=== PATIENT | male | born 1955 | race Caucasian/White ===

== ENCOUNTER → 2016-12-31 | Outpatient (CLI) | payer BC ==
[2016-12-31 10:43] LABS: HEMATOCRIT 49.6 % (42-52); MEAN CELL VOLUME 91.9 fL (80-100); MEAN CORPUSCULAR HEMOGLOBIN 30.6 pg (25-34); MEAN CORPUSCULAR HGB CONC 33.3 g/dl (32-36); MEAN PLATELET VOLUME 9.3 fL (7.4-10.4); PLATELET COUNT 252 K/uL (130-400); WHITE BLOOD COUNT 4.94 K/uL (4.8-10.8)
[2016-12-31 15:15] LABS: ALT/SGPT 34 U/L (12-78); AST/SGOT 21 U/L (15-37); BLOOD UREA NITROGEN 18 mg/dl (7-18); BUN/CREATININE RATIO 18.3 (10-20); CALCIUM 8.9 mg/dl (8.5-10.1); CARBON DIOXIDE 29 mmol/L (21-32); CHLORIDE 108 mmol/L (98-107); CREATININE 0.96 mg/dl (0.60-1.40); GLUCOSE 96 mg/dl (70-99); POTASSIUM 4.5 mmol/L (3.5-5.1); SODIUM 141 mmol/L (136-145)
[2016-12-31 15:22] LABS: CHOLESTEROL 162 mg/dl (0-200); CHOLESTEROL/HDL RATIO 2.5; HDL CHOLESTEROL 66 mg/dl; LDL CHOLESTEROL CALCULATED 82 mg/dl; TRIGLYCERIDES 70 mg/dl (0-150); VERY LOW DENSITY LIPOPROT CALC 14 mg/dl
== END | disposition home or self-care (01) ==
LOC: C.LABBC 09:10
PROVIDERS: ATTEND Urology
DX: Z00.00 Encounter for general adult medical examination without abnormal findings (principal); Z11.59 Encounter for screening for other viral diseases; R97.20 Elevated prostate specific antigen [PSA]; E78.00 Pure hypercholesterolemia, unspecified; I51.9 Heart disease, unspecified; R00.2 Palpitations

== ENCOUNTER → 2017-07-22 | Outpatient (CLI) | payer BC | END | disposition home or self-care (01) | LOC: C.LABBC 11:30 | PROVIDERS: ATTEND Urology | DX: R97.20 Elevated prostate specific antigen [PSA] (principal) ==

== ENCOUNTER → 2018-01-10 | Outpatient (CLI) | payer BC ==
[2018-01-10 14:18] LABS: ALT/SGPT 33 U/L (12-78); AST/SGOT 19 U/L (15-37); BLOOD UREA NITROGEN 22 mg/dl (7-18); CALCIUM 9.1 mg/dl (8.5-10.1); CARBON DIOXIDE 29 mmol/L (21-32); CHOLESTEROL 160 mg/dl (0-200); CREATININE 1.03 mg/dl (0.60-1.40); GLUCOSE 108 mg/dl (70-99); LDL CHOLESTEROL CALCULATED 99 mg/dl; POTASSIUM 4.9 mmol/L (3.5-5.1); SODIUM 139 mmol/L (136-145)
== END | disposition home or self-care (01) ==
LOC: C.LABBC 10:15
PROVIDERS: ATTEND Internal Medicine
DX: E78.00 Pure hypercholesterolemia, unspecified (principal); I51.9 Heart disease, unspecified

== ENCOUNTER 2020-04-23 11:06 | Inpatient (IN) ==
[2020-04-23] MEDS ORDERED: KETOROLAC TROMETHAMINE 15 MG/ML VIAL IV ONE (11:27)
[2020-04-23] MEDS ORDERED: SODIUM CHLORIDE 0.9% 1000ML 1,000 ML IV SCH ×2 (11:30→16:19)
[2020-04-23 11:41] LABS: Appearance Urine Cloudy (Clear); Bilirubin Urine Negative (Negative); Blood Urine 3+ (Negative); Color Urine Orange; Glucose Urine UA Negative (Negative); Ketones Urine Negative (Negative); Leukocyte Esterase Urine 3+ (Negative); Nitrite Urine Negative (Negative); Protein Urine 1+ (Negative); Urobilinogen Urine Negative (Negative); pH Urine 5.5 (4.5-7.5)
--- NOTE | 2020-04-23 11:43 | Emergency Department Note ---
Impression & Plan Prostatitis, Fever, Post-operative infection ED Provider Note NAME: STEVEN COTTON AGE: 64 SEX: M : 1955 ARRIVES VIA: Walk-In INFORMANT: Patient, ED PROVIDER(S): Brendon Rhodes DO CHIEF COMPLAINT: Fever HPI: The patient is 2 days status post transrectal prostate biopsy for possible prostate cancer who presented to the emergency department for an evaluation of fever. The patient had a fever of 103. He took Tylenol this morning. He states that he has some back pain as well as some dysuria. He is also noticed some hematuria with clots. He denies having any chest pain or cough. He has no difficulty breathing. He denies having any lower extremity swelling. He did call his primary urologist who did the procedure and he was advised to come to the emergency department for further evaluation. The patient states his pain is moderate. It is worse with movement. He denies having any rashes. ROS: See above HPI for pertinent positives & negatives. A total of 10 systems reviewed and were otherwise negative. PAST MEDICAL HISTORY: See Below PAST SURGICAL HISTORY: See Below FAMILY HISTORY: See Below SOCIAL HISTORY: See Below HOME MEDICATIONS: See Below ALLERGIES: See Below VITALS: See Below PHYSICAL EXAMINATION: GENERAL: Patient is awake alert in no acute distress patient is resting comfortably and showing no signs of anxiety EYES: The conjunctivae are clear. The pupils are round and reactive. EARS, NOSE, MOUTH AND THROAT: The nose is without any evidence of any deformity. Mucous membranes are moist. Tongue is midline. NECK: The neck is nontender and supple. RESPIRATORY: Normal respiratory effort is noted there is no evidence of wheezing rhonchi or rales CARDIOVASCULAR: Regular rate and rhythm noted there no murmurs rubs or gallops normal S1 normal S2. GASTROINTESTINAL: The abdomen is soft. There is mild suprapubic tenderness to palpation. BACK: No midline tenderness or or step-off noted range of motion in flexion extension as well as rotation no signs of muscle spasm noted MUSCULOSKELETAL/EXTREMITIES: There is no evidence of gross deformity full range of motion is noted in the hips and shoulders. SKIN: There is no obvious evidence of any rash. There are no petechiae, pallor or cyanosis noted. NEUROLOGIC: Patient is awake alert and oriented x3 strength is symmetric patellar reflexes are 2+ bilaterally MEDICAL DECISION MAKING: The patient is a 64-year-old male who presented to the emergency department for an evaluation of fever. The patient is 2 days status post transrectal biopsy of a prostate abnormality noted on MRI. This was done under sedation at [facility] in [place]. The patient developed fever and chills today. He presents to the emergency department for further evaluation. He was treated with IV fluids and IV antibiotics. He was reevaluated multiple times. I discussed the patient's laboratory and radiographic studies with him. I also discussed his case with his primary urology group at [facility]. Triage Nursing notes reviewed. Prior medical records reviewed Vital Signs: reviewed and remarkable for tachycardia. Differential diagnosis: Viral syndrome, otitis, pharyngitis, pneumonia, influenza, meningitis, urinary tract infection, sepsis, bacteremia, postop fever, as well as other pathologies. ER treatment provided: See below Diagnostics interpreted by me: ECG: none Cardiac Monitoring: An order was placed for continuous cardiac monitoring. The monitor shows a rate of 88 beats per minute with sinus rhythm. Laboratory studies: As stated above and show below. Imaging studies: See below Consultation(s): 1420: I discussed this case with the patient's primary urologist, . He does recommend further inpatient management with IV fluids and broad-spectrum antibiotics. Past Med/Surg History Medical History BPH (benign prostatic hyperplasia) Family history of thoracic aortic aneurysm Hyperlipidemia Monoallelic mutation of [id number] gene Paroxysmal atrial tachycardia Pyloric stenosis Renal artery aneurysm Surgical History H/O knee surgery (~1999) Right Knee done at [facility] History of pyloroplasty Hx of hernia repair (~1997) Umbilical hernia repair at [facility] Family History Mother Myocardial infarction Brother Atrial fibrillation Coronary heart disease Supraventricular tachycardia Father Prostate cancer Sister Stroke Denies family history of Ovarian cancer Breast cancer Colorectal cancer Social History Smoking Status: Never smoker Hx Alcohol Use: Yes Alcohol type: wine Preferred Language: Welsh Communication Ability: Effective Visual Impairment: No Limitations Hearing Ability: Normal Public Address System Operator Required: No Beliefs That Will Affect Care: None marital status: Current Living Situation: Spouse current occupational status: retired Feels Safe at Home: Yes Seatbelt Use: always Allergies Allergies Allergy/AdvReac Type Severity Reaction Status Date / Time No Known Allergies Allergy Verified 04/23/20 12:06 Home Meds Home Medications Medication Instructions Recorded Confirmed acetaminophen [Tylenol Extra 1,000 mg PO Q6H PRN 04/23/20 04/23/20 Strength] atorvastatin 10 mg PO QAM 04/23/20 04/23/20 cholecalciferol (vitamin D3) 50 mcg PO QAM 04/23/20 04/23/20 Results & Data (ED) Vital Signs Vital Signs - 24 hr 04/23/20 11:07 04/23/20 11:29 04/23/20 11:31 Temperature 36.4 C L Temperature Source Oral Pulse Rate 115 H 86 91 H Pulse Rate from SpO2 Sensor 86 90 Respiratory Rate 20 20 17 Blood Pressure 173/80 H 142/91 H 102/86 Blood Pressure Mean 111 102 90 Pulse Oximetry 95 97 97 Oxygen Delivery Method Room Air Room Air Room Air Sepsis Recent Fever Within 48 Hours Yes Sepsis New/Unexplained Change in Mental Status No Sepsis Action Taken by Nursing No Action Required 04/23/20 11:32 04/23/20 11:40 04/23/20 11:50 Temperature Temperature Source Pulse Rate 84 89 94 H Pulse Rate from SpO2 Sensor 85 90 93 H Respiratory Rate 22 24 18 Blood Pressure Blood Pressure Mean Pulse Oximetry 96 98 98 Oxygen Delivery Method Room Air Room Air Room Air Sepsis Recent Fever Within 48 Hours Sepsis New/Unexplained Change in Mental Status Sepsis Action Taken by Nursing 04/23/20 12:00 04/23/20 12:01 04/23/20 12:10 Temperature Temperature Source Pulse Rate 90 91 H 94 H Pulse Rate from SpO2 Sensor 91 H 91 H 94 H Respiratory Rate 25 H 27 H 26 H Blood Pressure 125/73 Blood Pressure Mean 84 Pulse Oximetry 97 97 96 Oxygen Delivery Method Room Air Room Air Room Air Sepsis Recent Fever Within 48 Hours Sepsis New/Unexplained Change in Mental Status Sepsis Action Taken by Nursing 04/23/20 12:20 04/23/20 12:30 Temperature Temperature Source Pulse Rate 98 H 93 H Pulse Rate from SpO2 Sensor 97 H 94 H Respiratory Rate 27 H 22 Blood Pressure 114/74 Blood Pressure Mean 86 Pulse Oximetry 96 97 Oxygen Delivery Method Room Air Room Air Sepsis Recent Fever Within 48 Hours Sepsis New/Unexplained Change in Mental Status Sepsis Action Taken by Intermediate Medications Current Medication List: was personally reviewed by me Laboratory Data Attestation: I reviewed the patient's lab results. Result diagrams: 04/23/20 11:52 04/23/20 11:52 Lab Results 04/23/20 04/23/20 04/23/20 Range/Units 11:25 11:52 11:52 WBC 14.87 H (4.8-10.8) K/uL RBC 5.24 (4.7-6.1) M/uL Hgb 16.8 (14.0-18.0) g/dL Hct 47.9 (42-52) % MCV 91.4 (80-100) fL MCH 32.1 (25-34) pg MCHC 35.1 (32-36) g/dL RDW Std Deviation 42.2 (36.4-46.3) fL RDW Coeff of Jes 12.6 (11.5-14.5) % Plt Count 207 (130-400) K/uL MPV 8.7 (7.4-10.4) fL Immature Gran % (Auto) 0.3 % Neut % (Auto) 93.3 % Lymph % (Auto) 5.3 % Green % (Auto) 0.9 % Eos % (Auto) 0.1 % Baso % (Auto) 0.1 % Neut # (Auto) 13.87 H (1.4-6.5) K/uL Lymph # (Auto) 0.79 L (1.2-3.4) K/uL Green # (Auto) 0.14 (0.11-0.59) K/uL Eos # (Auto) 0.01 (0-0.5) K/uL Baso # (Auto) 0.01 (0-0.2) K/uL Immature Gran # (Auto) 0.05 H (0.00-0.02) K/uL ESR 10 (0-14) mm/hr PT (9.0-12.0) Seconds INR (0.9-1.1) APTT (21.0-31.0) Seconds PTT Ratio Sodium (136-145) mmol/L Potassium (3.5-5.1) mmol/L Chloride (98-107) mmol/L Carbon Dioxide (21-32) mmol/L Anion Gap (3-11) BUN (7-18) mg/dl Creatinine (0.6-1.4) mg/dl Est Cr Clr Drug Dosing ml/min Est GFR ( Amer) Est GFR (Non-Af Amer) BUN/Creatinine Ratio (10-20) Glucose (70-99) mg/dl Calcium (8.5-10.1) mg/dl Total Bilirubin (0.2-1) mg/dl AST (15-37) U/L ALT (12-78) U/L Alkaline Phosphatase (45-117) U/L C-Reactive Protein (0-0.29) mg/dl Total Protein (6.4-8.2) gm/dl Albumin (3.4-5.0) gm/dl Globulin (2.5-4.0) gm/dl Albumin/Globulin Ratio (0.9-2) Procalcitonin (0-0.5) ng/ml Urine Color [place] Urine Appearance Cloudy A (Clear) Urine pH 5.5 (4.5-7.5) Ur Specific Cassandra 1.010 (1.000-1.030) Urine Protein 1+ H (Negative) Urine Glucose (UA) Negative (Negative) Urine Ketones Negative (Negative) Urine Blood 3+ H (Negative) Urine Nitrite Negative (Negative) Urine Bilirubin Negative (Negative) Urine Urobilinogen Negative (Negative) Ur Leukocyte Esterase 3+ H (Negative) Urine WBC (Auto) >30 H (0-5) /hpf Urine RBC (Auto) >30 H (0-4) /hpf U Hyaline Cast (Auto) 1-5 (0-5) /lpf U Epithel Cells (Auto) 0-5 (0-5) /lpf Urine Bacteria (Auto) 2+ H (Negative) 04/23/20 04/23/20 04/23/20 Range/Units 11:52 11:52 11:52 WBC (4.8-10.8) K/uL RBC (4.7-6.1) M/uL Hgb (14.0-18.0) g/dL Hct (42-52) % MCV (80-100) fL MCH (25-34) pg MCHC (32-36) g/dL RDW Std Deviation (36.4-46.3) fL RDW Coeff of Jes (11.5-14.5) % Plt Count (130-400) K/uL MPV (7.4-10.4) fL Immature Gran % (Auto) % Neut % (Auto) % Lymph % (Auto) % Green % (Auto) % Eos % (Auto) % Baso % (Auto) % Neut # (Auto) (1.4-6.5) K/uL Lymph # (Auto) (1.2-3.4) K/uL Green # (Auto) (0.11-0.59) K/uL Eos # (Auto) (0-0.5) K/uL Baso # (Auto) (0-0.2) K/uL Immature Gran # (Auto) (0.00-0.02) K/uL ESR (0-14) mm/hr PT 10.9 (9.0-12.0) Seconds INR 1.0 (0.9-1.1) APTT 31.9 H (21.0-31.0) Seconds PTT Ratio 1.1 Sodium 135 L (136-145) mmol/L Potassium 4.2 (3.5-5.1) mmol/L Chloride 102 (98-107) mmol/L Carbon Dioxide 28 (21-32) mmol/L Anion Gap 5.0 (3-11) BUN 14 (7-18) mg/dl Creatinine 1.27 (0.6-1.4) mg/dl Est Cr Clr Drug Dosing 75.9 ml/min Est GFR ( Amer) 67.8 Est GFR (Non-Af Amer) 58.5 BUN/Creatinine Ratio 11.2 (10-20) Glucose 126 H (70-99) mg/dl Calcium 9.1 (8.5-10.1) mg/dl Total Bilirubin 0.9 (0.2-1) mg/dl AST 20 (15-37) U/L ALT 30 (12-78) U/L Alkaline Phosphatase 70 (45-117) U/L C-Reactive Protein 4.36 H (0-0.29) mg/dl Total Protein 8.0 (6.4-8.2) gm/dl Albumin 3.7 (3.4-5.0) gm/dl Globulin 4.3 H (2.5-4.0) gm/dl Albumin/Globulin Ratio 0.9 (0.9-2) Procalcitonin 0.73 H (0-0.5) ng/ml Urine Color Urine Appearance (Clear) Urine pH (4.5-7.5) Ur Specific Cassandra (1.000-1.030) Urine Protein (Negative) Urine Glucose (UA) (Negative) Urine Ketones (Negative) Urine Blood (Negative) Urine Nitrite (Negative) Urine Bilirubin (Negative) Urine Urobilinogen (Negative) Ur Leukocyte Esterase (Negative) Urine WBC (Auto) (0-5) /hpf Urine RBC (Auto) (0-4) /hpf U Hyaline Cast (Auto) (0-5) /lpf U Epithel Cells (Auto) (0-5) /lpf Urine Bacteria (Auto) (Negative) Administered Medications Discontinued Medications Sodium Chloride (Nss 1000ml) 1,000 mls @ 999 mls/hr IV .[id number] SCOTT Stop: 04/23/20 12:30 Last Infusion: 04/23/20 13:06 Dose: 0 mls/hr Documented by: [id number] Admin: 04/23/20 12:00 Dose: 999 mls/hr Documented by: [id number] Piperacillin Sod/Tazobactam Sod (Zosyn) 4.5 gm in 120 mls @ 240 mls/hr IV NOW ONE Stop: 04/23/20 13:05 Last Infusion: 04/23/20 13:59 Dose: 0 mls/hr Documented by: [id number] Admin: 04/23/20 13:25 Dose: 240 mls/hr Documented by: [id number] Ioversol (Ioversol 100ml) 93 ml IV ONCE ONE Stop: 04/23/20 12:57 Last Admin: 04/23/20 12:56 Dose: 93 ml Documented by: [id number] Ketorolac Tromethamine (Ketorolac Tromethamine 15 Mg/Ml Vial) 10 mg IV NOW ONE Stop: 04/23/20 11:28 Last Admin: 04/23/20 12:00 Dose: 10 mg Documented by: [id number] Imaging Data Radiologist's Impression: CT SCAN OF THE ABDOMEN AND PELVIS WITH IV CONTRAST CLINICAL HISTORY: Fever status post prostate biopsy. COMPARISON STUDY: Abdominal CT dated 04/08/2020. TECHNIQUE: Following the IV administration of 94 cc of Optiray 320, CT scan of the abdomen and pelvis is performed from the lung bases to the proximal femora. Images are reviewed in the axial, sagittal, and coronal planes. IV contrast was administered without complication. A dose lowering technique was utilized adhering to the principles of ALARA. CT DOSE: 1090.29 mGy.cm FINDINGS: Lung bases: The heart is normal in size and without pericardial effusion. The lung bases are clear noting bibasilar scarring/atelectasis. There is a small hiatal hernia. Liver: The contrast-enhanced liver is normal in size, contour, and attenuation. There is no intrahepatic biliary ductal dilatation. The hepatic veins and portal veins are patent. Gallbladder: Unremarkable. Spleen: Normal in size and attenuation. A 1.5 cm hypodensity in the inferior spleen on image #128 is unchanged and statistically of doubtful significance. Pancreas: Unremarkable. Adrenal glands: Unremarkable. Kidneys: The contrast enhanced kidneys are normal in size and without hydronephrosis. The kidneys enhance symmetrically. Numerous bilateral renal cysts measure up to 5.3 cm. Additional subcentimeter cortical hypodensities also likely represent cysts but are too small for definitive characterization. Abdominal vasculature: The abdominal aorta is normal in course and caliber noting mild atherosclerotic calcification. Bowel: There is no bowel obstruction. There are scattered colonic diverticula without CT evidence of acute diverticulitis. Mild fecal retention is seen throughout the colon. The appendix is well-visualized and normal. Peritoneum: There is no intraperitoneal free air or abdominal ascites. There is a fat-containing umbilical hernia. There is evidence of ventral hernia repair in the pelvis. Lymphadenopathy: None. Pelvic viscera: The prostate gland is enlarged and heterogeneous measuring 6.6 cm in transverse diameter. The bladder wall is mildly thickened and trabeculated suggesting chronic outlet obstruction. Skeletal structures: No lytic or blastic lesions are seen. IMPRESSION: 1. The prostate gland is enlarged and heterogeneous. Correlate clinically and with urinalysis for evidence of prostatitis. 2. Additional findings as above. ACT 112: Negative or not required by law. Electronically signed by: Deion Guillen M.D. 04/23/2020 1:14 PM Dictated: 04/23/20 1307 Transcribed: 04/23/20 1307 Blood Pressure Blood Pressure Findings: Normal blood pressure Discharge Plan Visit Data Chief Complaint: Fever Stated Complaint: POST PROCEDURE [facility] - FEVER ED Provider: Brendon Rhodes Discharge Problem: Prostatitis, Fever, Post-operative infection Forms Stand Alone Forms: My [facility] [employer] Prescriptions Prescriptions: No Action acetaminophen [Tylenol Extra Strength] 500 mg Tablet 1,000 mg PO Q6H PRN (Reason: Pain) RF: 0 atorvastatin 10 mg tablet 10 mg PO QAM RF: 0 cholecalciferol (vitamin D3) 50 mcg (2,000 unit) capsule 50 mcg PO QAM RF: 0 Referrals Referrals: Brendon Carrasco MD [Primary Care Provider] - Discharge Problem: Prostatitis Qualifiers: Prostatitis type: unspecified Qualified Code(s): N41.9 - Inflammatory disease of prostate, unspecified Fever Qualifiers: Fever type: unspecified Qualified Code(s): R50.9 - Fever, unspecified Post-operative infection Qualifiers: Encounter type: initial encounter Postoperative infection type: unspecified type Qualified Code(s): T81.40XA - Infection following a procedure, unspecified, initial encounter
[2020-04-23 11:54] LABS: Epithelial Cell Urine Auto 0-5 /lpf (0-5); RBC Urine Automated >30 /hpf (0-4); WBC Urine Automated >30 /hpf (0-5)
[2020-04-23 11:55] LABS: Bacteria Urine Automated 2+ (Negative)
[2020-04-23 12:04] LABS: Basophils # (auto) 0.01 K/uL (0-0.2); Basophils % (auto) 0.1 %; Eosinophils # (auto) 0.01 K/uL (0-0.5); Eosinophils % (auto) 0.1 %; Hematocrit (blood only) 47.9 % (42-52); Hemoglobin 16.8 g/dL (14.0-18.0); Immature Granulocytes # (auto) 0.05 K/uL (0.00-0.02); Immature Granulocytes % (auto) 0.3 %; Lymphocytes # (auto) 0.79 K/uL (1.2-3.4); Lymphocytes % (auto) 5.3 %; Mean Corpuscular Hemoglobin 32.1 pg (25-34); Mean Corpuscular Hgb Conc 35.1 g/dL (32-36); Mean Corpuscular Volume 91.4 fL (80-100); Mean Platelet Volume 8.7 fL (7.4-10.4); Monocytes # (auto) 0.14 K/uL (0.11-0.59); Monocytes % (auto) 0.9 %; Neutrophils # (auto) 13.87 K/uL (1.4-6.5); Neutrophils % (auto) 93.3 %; Platelet Count 207 K/uL (130-400); RDW Coefficient of Variation 12.6 % (11.5-14.5); RDW Standard Deviation 42.2 fL (36.4-46.3); Red Blood Count 5.24 M/uL (4.7-6.1); White Blood Count 14.87 K/uL (4.8-10.8)
[2020-04-23 12:15] LABS: Partial Thromboplastin Ratio 1.1; Partial Thromboplastin Time 31.9 Seconds (21.0-31.0); Prothrombin Time 10.9 Seconds (9.0-12.0)
[2020-04-23 12:22] LABS: Albumin Level 3.7 gm/dl (3.4-5.0); BUN Creatinine Ratio 11.2 (10-20); Calcium 9.1 mg/dl (8.5-10.1); Creatinine Clr Calc Pharmacy 75.9 ml/min; Est GFR (African American) 67.8; Est GFR (Non-African American) 58.5; Potassium 4.2 mmol/L (3.5-5.1)
[2020-04-23 12:25] LABS: Albumin Globulin Ratio 0.9 (0.9-2); Bilirubin,Total 0.9 mg/dl (0.2-1); C Reactive Protein 4.36 mg/dl (0-0.29); Globulin 4.3 gm/dl (2.5-4.0)
[2020-04-23] MEDS ORDERED: PIPERACILLIN/TAZOBACTAM 4.5 GM/120 ML BAG IV ONE (12:36)
[2020-04-23] MEDS ORDERED: PIPERACILL/TAZOBAC CONSULT ACTIVE PRN (12:36)
[2020-04-23] MEDS ORDERED: IOVERSOL 100ml IV ONE (12:56)
--- NOTE | 2020-04-23 13:16 | CT Scan Report ---
CT SCAN OF THE ABDOMEN AND PELVIS WITH IV CONTRAST CLINICAL HISTORY: Fever status post prostate biopsy. COMPARISON STUDY: Abdominal CT dated 04/08/2020. TECHNIQUE: Following the IV administration of 94 cc of Optiray 320, CT scan of the abdomen and pelvi s is performed from the lung bases to the proximal femora. Images are reviewed in the axial, sagittal , and coronal planes. IV contrast was administered without complication. A dose lowering technique wa s utilized adhering to the principles of ALARA. CT DOSE: 1090.29 mGy.cm FINDINGS: Lung bases: The heart is normal in size and without pericardial effusion. The lung bases are clear no ting bibasilar scarring/atelectasis. There is a small hiatal hernia. Liver: The contrast-enhanced liver is normal in size, contour, and attenuation. There is no intrahepa tic biliary ductal dilatation. The hepatic veins and portal veins are patent. Gallbladder: Unremarkable. Spleen: Normal in size and attenuation. A 1.5 cm hypodensity in the inferior spleen on image #128 is unchanged and statistically of doubtful significance. Pancreas: Unremarkable. Adrenal glands: Unremarkable. Kidneys: The contrast enhanced kidneys are normal in size and without hydronephrosis. The kidneys enh ance symmetrically. Numerous bilateral renal cysts measure up to 5.3 cm. Additional subcentimeter cor tical hypodensities also likely represent cysts but are too small for definitive characterization. Abdominal vasculature: The abdominal aorta is normal in course and caliber noting mild atheroscleroti c calcification. Bowel: There is no bowel obstruction. There are scattered colonic diverticula without CT evidence of acute diverticulitis. Mild fecal retention is seen throughout the colon. The appendix is well-visual ized and normal. Peritoneum: There is no intraperitoneal free air or abdominal ascites. There is a fat-containing umbi lical hernia. There is evidence of ventral hernia repair in the pelvis. Lymphadenopathy: None. Pelvic viscera: The prostate gland is enlarged and heterogeneous measuring 6.[address] The bladder wall is mildly thickened and trabeculated suggesting chronic outlet obstruction. Skeletal structures: No lytic or blastic lesions are seen. IMPRESSION: 1. The prostate gland is enlarged and heterogeneous. Correlate clinically and with urinalysis for yaniv dence of prostatitis. 2. Additional findings as above. ACT 112: Negative or not required by law. Electronically signed by: Deion Guillen M.D. 04/23/2020 1:14 PM
[2020-04-23] MEDS ORDERED: ACETAMINOPHEN 500 MG TAB PO STA (14:21)
--- NOTE | 2020-04-23 15:25 | History & Physical Report ---
Date of Service April 23, 2020 Assessment & Plan (1) Prostatitis: Postsurgical infection. Patient had a transrectal prostate biopsy on Tuesday Procalcitonin 0.73 WBC 14.7 Received Zosyn in the emergency department. Continue Zosyn IV We will also add gentamicin 7 mg/kg for 24 to 48 hours until cultures come back At this point I did discuss the case with urology. No indication for consult at this time If patient does need a catheter would use a coud catheter as the patient has had multiple prostate biopsies and may have stricture For now strict ins and outs Follow daily labs (2) STEPHANIE (acute kidney injury): GFR is reduced at 58 Patient's creatinine is slightly bumped at 1.27 Will treat with normal saline solution at 125 mL/h Strict I's and O's Follow serial labs (3) BPH (benign prostatic hyperplasia): Follows with urology in [place] Is not on any alpha blockers Continue to follow strict I's and O's Further outpatient management with his urologist (4) Hyperlipidemia: Continue atorvastatin 10 mg daily (5) Paroxysmal atrial tachycardia: Follows with Dr. Dunbar [facility] cardiology Not on any beta-pierre or anticoagulant Normal sinus rhythm on telemetry here in the ED Schedule for follow-up appointment with cardiology in 1 year (6) Family history of thoracic aortic aneurysm: CT a of the chest in March 2020 with no abnormal findings Annual follow-up (7) DVT prophylaxis: CHRIS kaia SCDs No chemical prophylaxis secondary to gross hematuria and recent surgery Ambulate in the hallways as tolerated Please refer to Dr. Mar's addendum for further recommendations History of Present Illness Primary Care Provider: Brendon Carrasco MD Attending: Dr. Mar This is a 64-year-old male with a history of BPH with multiple negative biopsies of the prostate, hyperlipidemia, obesity. The patient presents for evaluation treatment secondary to hematuria, fever, and Rigors. He underwent a transrectal biopsy of the prostate on Tuesday at [facility] in [place] and then stayed with his family the next day. He then returned home and did well until last night at approximate midnight when he began to have rigors and felt febrile. He had a very small amount of blood rectally on Tuesday and that has since resolved completely. He also had a resolution of hematuria until last night when he began having gross hematuria again. He has some minimal flank pain and low back pain and presented to the emergency room this morning for further evaluation and treatment. The patient was found to have an elevated white count of 14.87. T-max was 37.7. His urologic surgeon in [place] Dr. Hinkle was contacted and recommended inpatient IV therapy for postoperative infection. The patient is seen in his bed in room C3 with his Kimmie present. He continues to have chills and rigors. Has no nausea or vomiting. He does feel febrile. A CT scan of the abdomen pelvis was completed and shows enlarged prostate which is heterogeneous. There is also evidence for prostatitis. Treatment options were discussed with the patient and he will be admitted for inpatient therapy with IV Zosyn. I did discuss CODE STATUS with the patient and he desires to be a level 1 for resuscitation. His is present and agrees. Allergies Allergy/AdvReac Type Severity Reaction Status Date / Time No Known Allergies Allergy Verified 04/23/20 12:06 Home Medications Home Medications Medication Instructions Recorded Confirmed Type acetaminophen [Tylenol Extra 1,000 mg PO Q6H PRN 04/23/20 04/23/20 History Strength] atorvastatin 10 mg PO QAM 04/23/20 04/23/20 History cholecalciferol (vitamin D3) 50 mcg PO QAM 04/23/20 04/23/20 History Past Med/Surg History Medical History BPH (benign prostatic hyperplasia) Family history of thoracic aortic aneurysm Hyperlipidemia Monoallelic mutation of [id number] gene Paroxysmal atrial tachycardia Pyloric stenosis Renal artery aneurysm Surgical History H/O knee surgery (~1999) Right Knee done at [facility] History of pyloroplasty Hx of hernia repair (~1997) Umbilical hernia repair at [facility] Family History Mother Myocardial infarction Brother Atrial fibrillation Coronary heart disease Supraventricular tachycardia Father Prostate cancer Sister Stroke Denies family history of Ovarian cancer Breast cancer Colorectal cancer Social History Smoking Status: Never smoker Second Hand Exposure: No; Do You Dip or Chew Tobacco: No; Hx Alcohol Use: Yes Alcohol type: wine and hard liquor Hx Substance Use: No Preferred Language: Somali Communication Ability: Effective Visual Impairment: No Limitations Hearing Ability: Normal Observation Nurse Required: No Beliefs That Will Affect Care: None marital status: Current Living Situation: Spouse current occupational status: retired Other Information That Helps Us Care for You: No Feels Safe at Home: Yes Safety Concerns: Feels Safe At This Time Seatbelt Use: always Review of Systems Review of Systems: All systems reviewed & are unremarkable except as noted in HPI & below Physical Exam Physical Exam: GENERAL : No acute distress. Pleasant. No conversational dyspnea EYES: No icterus, gaze conjugate. Pupils equal round and reactive to light NOSE: No evidence of epistaxis. MOUTH: No lesions or candidiasis. Mucosa is moist NECK: Supple. No stridor or appreciation of carotid bruits LUNGS: CTA B/L, no wheezes, rales or rhonchi. Good inspirational effort HEART: Regular, rate controlled. No appreciation of ectopy ABDOMEN: Soft, NT, ND, BS Present EXTREMITIES: No LE edema, pedal pulses intact and equal bilaterally NEURO: A&OX3 Results & Data Results & Data ([facility]) Vital Signs (Past 12 Hours) Vital Signs Temp Pulse Pulse Resp BP BP Pulse Ox 04/23/20 14:40 98 H 33 H 93 04/23/20 14:31 100 H 28 H 95 04/23/20 14:30 37.7 C H 102 H 102 H 33 H 144/94 H 144/94 H 95 04/23/20 14:28 106 H 24 160/88 H 96 04/23/20 14:20 113 H 35 H 04/23/20 14:11 32 H 04/23/20 13:50 88 21 98 04/23/20 13:40 95 H 23 97 04/23/20 13:31 101 H 19 96 04/23/20 13:30 96 H 20 113/73 96 04/23/20 13:28 99 H 23 123/74 96 04/23/20 12:40 95 H 19 97 04/23/20 12:31 95 H 27 H 97 04/23/20 12:30 93 H 22 114/74 97 04/23/20 12:20 98 H 27 H 96 04/23/20 12:10 94 H 26 H 96 04/23/20 12:01 91 H 27 H 97 04/23/20 12:00 90 25 H 125/73 97 04/23/20 11:50 94 H 18 98 04/23/20 11:40 89 24 98 04/23/20 11:32 84 22 96 04/23/20 11:31 91 H 17 102/86 97 04/23/20 11:29 86 20 142/91 H 97 04/23/20 11:07 36.4 C L 115 H 20 173/80 H 95 Laboratory Results 04/23/20 11:52 04/23/20 11:52 INR 1.0 (0.9-1.1) 04/23/20 11:52 Procalcitonin is elevated at 0.73 ng/mL C-reactive protein is elevated at 4.36 mg/Andres Diagnostic Findings CT SCAN OF THE ABDOMEN AND PELVIS WITH IV CONTRAST CLINICAL HISTORY: Fever status post prostate biopsy. COMPARISON STUDY: Abdominal CT dated 04/08/2020. TECHNIQUE: Following the IV administration of 94 cc of Optiray 320, CT scan of the abdomen and pelvis is performed from the lung bases to the proximal femora. Images are reviewed in the axial, sagittal, and coronal planes. IV contrast was administered without complication. A dose lowering technique was utilized adhering to the principles of ALARA. CT DOSE: 1090.29 mGy.cm FINDINGS: Lung bases: The heart is normal in size and without pericardial effusion. The lung bases are clear noting bibasilar scarring/atelectasis. There is a small hiatal hernia. Liver: The contrast-enhanced liver is normal in size, contour, and attenuation. There is no intrahepatic biliary ductal dilatation. The hepatic veins and portal veins are patent. Gallbladder: Unremarkable. Spleen: Normal in size and attenuation. A 1.5 cm hypodensity in the inferior spleen on image #128 is unchanged and statistically of doubtful significance. Pancreas: Unremarkable. Adrenal glands: Unremarkable. Kidneys: The contrast enhanced kidneys are normal in size and without hydronephrosis. The kidneys enhance symmetrically. Numerous bilateral renal cysts measure up to 5.3 cm. Additional subcentimeter cortical hypodensities also likely represent cysts but are too small for definitive characterization. Abdominal vasculature: The abdominal aorta is normal in course and caliber noting mild atherosclerotic calcification. Bowel: There is no bowel obstruction. There are scattered colonic diverticula without CT evidence of acute diverticulitis. Mild fecal retention is seen throughout the colon. The appendix is well-visualized and normal. Peritoneum: There is no intraperitoneal free air or abdominal ascites. There is a fat-containing umbilical hernia. There is evidence of ventral hernia repair in the pelvis. Lymphadenopathy: None. Pelvic viscera: The prostate gland is enlarged and heterogeneous measuring 6.6 cm in transverse diameter. The bladder wall is mildly thickened and trabeculated suggesting chronic outlet obstruction. Skeletal structures: No lytic or blastic lesions are seen. IMPRESSION: 1. The prostate gland is enlarged and heterogeneous. Correlate clinically and with urinalysis for evidence of prostatitis. 2. Additional findings as above. ACT 112: Negative or not required by law. Electronically signed by: Deion Guillen M.D. 04/23/2020 1:14 PM Code Status & VTE Plan Code Status Level I full resuscitation VTE Prophylaxis Plan VTE Prophylaxis will be ordered: Yes Supervising Physician Co-Signing Physician Notes I personally saw and examined the patient. I verified all sexton points and agree with FILIPE Mi with the following exceptions and/or additions: 64-year-old male presents to the ER with hematuria and fever after recent transrectal biopsy of the prostate. O/E well-appearing, no acute distress, HS1+2, RRR, no murmurs, Chest CTAB, Abdo SNT, BS normal, no CVA tenderness. A/P Acute bacterial prostatitis - presumed fluoroquinolone resistant as suspect this was used perioperatively for his biopsy. Agree with Zosyn and gentamicin, pending blood and urine cultures. UA grossly positive for infection. Increase rate of IV fluids to avoid blood clots causing acute urine retention which occurred after his previous biopsy. Otherwise plan as above PG Care Time/CCT Total # of Minutes Spent Total Time Spent with Patient: Total time spent is greater than 50% in coordination of care (as documented) at patient's floor/unit and/or counseling patient: 60 minutes including discussion with urologist and Kimmie Coding Level of Care Code 94768 Initial Inpt Care Lvl 3 Diagnoses Prostatitis N41.9 Prostatitis type: unspecified STEPHANIE (acute kidney injury) N17.9 BPH (benign prostatic hyperplasia) N40.0 Hyperlipidemia E78.5 Paroxysmal atrial tachycardia I47.1 Family history of thoracic aortic aneurysm Z82.49 DVT prophylaxis Z29.9 Time Spent (min) 60 (1) Prostatitis Prostatitis type: unspecified Qualified Code(s): N41.9 - Inflammatory disease of prostate, unspecified
[2020-04-23] MEDS ORDERED: GENTAMICIN CONSULT ACTIVE PRN (15:36)
[2020-04-23] MEDS ORDERED: ALUMINUM/MAGNESIUM SUSP 30 ML UDC PO PRN (16:19)
[2020-04-23] MEDS ORDERED: ONDANSETRON INJ 2 MG/ML 2 ML VIAL IV PRN (16:19)
[2020-04-23] MEDS ORDERED: POLYETHYLENE (MIRALAX) 17 GM PACK PO PRN (16:19)
[2020-04-23] MEDS ORDERED: MAGNESIUM HYDROXIDE SUSP 30 ML UDC PO PRN (16:19)
[2020-04-23] MEDS ORDERED: DEXTROSE 5% IV ONE (16:30)
[2020-04-23] MEDS ORDERED: GENTAMICIN SULFATE IV ONE (16:30)
--- NOTE | 2020-04-23 16:43 | Pharmacy Report ---
Pharmacy Abx Initial Consult - Date of Service April 23, 2020 - Pharmacy Dosing Scope Date of Consult: 04/23 Consultation requested by: Deion Mi PA-c Pharmacy is consulted to initiate gent/zosyn iv dosing therapy, order appropriate labs and adjust drug dose/frequency. - Subjective The patient is a 64 year old M admitted on 04/23/20 15:27. - Objective Height: 6 ft 3 in Weight: 107.7 kg Vital Signs (Past 12hrs): Vital Signs Temp Pulse Pulse Resp BP BP Pulse Ox 04/23/20 16:21 37.3 C 111 H 17 102/59 L 94 04/23/20 15:50 107 H 23 91 04/23/20 15:40 107 H 26 H 90 04/23/20 15:31 109 H 28 H 91 04/23/20 15:30 108 H 22 108/73 92 04/23/20 15:20 110 H 27 H 90 04/23/20 15:10 107 H 22 91 04/23/20 15:01 114 H 28 H 92 04/23/20 15:00 108 H 25 H 110/67 92 04/23/20 14:50 109 H 21 95 04/23/20 14:40 98 H 33 H 93 04/23/20 14:31 100 H 28 H 95 04/23/20 14:30 37.7 C H 102 H 102 H 33 H 144/94 H 144/94 H 95 04/23/20 14:28 106 H 24 160/88 H 96 04/23/20 14:20 113 H 35 H 04/23/20 14:11 32 H 04/23/20 13:50 88 21 98 04/23/20 13:40 95 H 23 97 04/23/20 13:31 101 H 19 96 04/23/20 13:30 96 H 20 113/73 96 04/23/20 13:28 99 H 23 123/74 96 04/23/20 12:40 95 H 19 97 04/23/20 12:31 95 H 27 H 97 04/23/20 12:30 93 H 22 114/74 97 04/23/20 12:20 98 H 27 H 96 04/23/20 12:10 94 H 26 H 96 04/23/20 12:01 91 H 27 H 97 04/23/20 12:00 90 25 H 125/73 97 04/23/20 11:50 94 H 18 98 04/23/20 11:40 89 24 98 04/23/20 11:32 84 22 96 04/23/20 11:31 91 H 17 102/86 97 04/23/20 11:29 86 20 142/91 H 97 04/23/20 11:07 36.4 C L 115 H 20 173/80 H 95 Lab Results (24hrs): Laboratory Tests (24 Hours) 04/23/20 04/23/20 04/23/20 11:52 11:52 11:52 WBC Neut # (Auto) ESR 10 Creatinine 1.27 Est Cr Clr Drug Dosing 75.9 C-Reactive Protein 4.36 H Procalcitonin 0.73 H 04/23/20 11:52 WBC 14.87 H Neut # (Auto) 13.87 H ESR Creatinine Est Cr Clr Drug Dosing C-Reactive Protein Procalcitonin Micro Results: 04/23/20 11:55 Aerobic Blood Culture - Pending Blood Anaerobic Blood Culture - Pending 04/23/20 11:52 Aerobic Blood Culture - Pending Blood Anaerobic Blood Culture - Pending 04/23/20 11:25 Urine Culture - Pending Urine,Clean Catch - Assessment & Plan Assessment 64 year old M admitted with hematuria/dysuria following a prostate biopsy. Empirically starting zosyn and gentamicin for 24-48 hours, awaiting cultures. WBC is elevated at 14. SCr is mildly elevated from baseline at 1.27. Will still utilize extended interval gent with [facility] nomogram. Plan Piperacillin/tazobactam * 4.5 g bolus administered over 30 minutes, then 3.375g IV extended infusion every 8 hours for CrCl greater than 20 mL/min * Tobramycin/Gentamicin/Amikacin * Patient meets criteria for extended-interval aminoglycoside dosing per the [place] nomogram * Dose: 660 mg (7 mg/kg adjusted body weight) x1 * Dosage based on adjusted body weight for patients weighing > 120% of ideal body weight. * Random level ordered for 04/24@ 0030 to determine appropriate dosing interval Pharmacy will continue to follow and will adjust dose/frequency as necessary. Thank you.
[2020-04-23] MEDS: PIPERACILLIN/TAZOBACTAM 3.375 GM in DEXTROSE 5% 100 ML IV SCH (18:39)
[2020-04-23] MEDS ORDERED: SODIUM CHLORIDE 0.9% 1000ML 1,000 ML IV ONE (19:39)
[2020-04-23] MEDS: LACTATED RINGER'S 1,000 ML IV SCH (22:07)
--- NOTE | 2020-04-24 01:36 | Pharmacy Report ---
Pharmacy Abx Dose Short Note - Date of Service April 24, 2020 - Assessment & Plan Assessment 64 year old M receiving Zosyn/Gentamicin for treatment of prostatitis and now Gram negative bacteremia Day # 1 of antimicrobial therapy. Plan Gentamicin * Random level approximately 7 hours after gentamicin 66 mg IV x 1 (7 mg/kg of adjusted body weight) was 5.2 mcg/mL * Per the [facility] nomogram, continue gentamicin 660 mg IV q24 hours * Since this is an empiric indication, will not order additional levels. Pharmacy will continue to follow and will adjust dose/frequency as necessary. Thank you.
[2020-04-24] MEDS: PIPERACILLIN/TAZOBACTAM 3.375 GM in DEXTROSE 5% 100 ML IV SCH ×3 (01:42→17:55)
[2020-04-24] MEDS: LACTATED RINGER'S 1,000 ML IV SCH (01:43)
[2020-04-24] MEDS: ACETAMINOPHEN 325 MG TAB PO PRN (04:30)
[2020-04-24 06:00] LABS: Basophils # (auto) 0.01 K/uL (0-0.2); Basophils % (auto) 0.1 %; Hematocrit (blood only) 38.2 % (42-52); Hemoglobin 13.3 g/dL (14.0-18.0); Immature Granulocytes # (auto) 0.04 K/uL (0.00-0.02); Immature Granulocytes % (auto) 0.3 %; Lymphocytes # (auto) 0.92 K/uL (1.2-3.4); Lymphocytes % (auto) 7.3 %; Mean Corpuscular Hemoglobin 31.4 pg (25-34); Mean Corpuscular Hgb Conc 34.8 g/dL (32-36); Mean Corpuscular Volume 90.3 fL (80-100); Monocytes # (auto) 0.49 K/uL (0.11-0.59); Monocytes % (auto) 3.9 %; Neutrophils # (auto) 11.21 K/uL (1.4-6.5); Neutrophils % (auto) 88.4 %; Platelet Count 146 K/uL (130-400); RDW Coefficient of Variation 12.8 % (11.5-14.5); RDW Standard Deviation 42.4 fL (36.4-46.3); Red Blood Count 4.23 M/uL (4.7-6.1); White Blood Count 12.67 K/uL (4.8-10.8)
[2020-04-24 06:38] LABS: BUN Creatinine Ratio 15.1 (10-20); Calcium 7.8 mg/dl (8.5-10.1); Creatinine Clr Calc Pharmacy 96.4 ml/min; Est GFR (African American) 90.5; Est GFR (Non-African American) 78.1; Potassium 3.9 mmol/L (3.5-5.1)
[2020-04-24] MEDS: ATORVASTATIN 10 MG TAB PO SCH (07:34)
[2020-04-24] MEDS: CHOLECALCIFEROL 1,000 UNITS 25 MCG TAB PO SCH (07:34)
--- NOTE | 2020-04-24 08:05 | Hospitalist Progress Note ---
Date of Service April 24, 2020 Assessment & Plan (1) Prostatitis: Mr. Daly is a 64-year-old male with a history of BPH with multiple negative biopsies of the prostate, hyperlipidemia, obesity. He had complaints of hematuria, fever, and rigors. He underwent a transrectal biopsy of the prostate on Tuesday (04/21/20) at [facility] in [place]. He had some minimal flank pain and low back pain. He was found to have an elevated white count of 14.87 in the ED. His urologic surgeon in [place] Dr. Hinkle was contacted and recommended inpatient IV therapy for postoperative infection. Sepsis secondary to prostatitis - Patient's fever and chills have resolved, feels much better - WBC has been downtrending from 14.87 to 12.67 today - Blood culture preliminary: gram negative bacilli - Continue on Zosyn 3.375g IV q8h - Discontinued gentamicin 660mg IV q24h - Follow up AM CBC STEPHANIE - Patient's creatinine was slightly elevated on admission at 1.27--down to 1.00 this AM - Follow I's and O's - Follow AM BMPs Hyperlipidemia - Continue with home atorvastatin 10mg PO daily Paroxysmal atrial tachycardia - Not receiving treatment currently - Follows with [facility] cardiology - Normal sinus rhythm on EKG DVT prophylaxis: CHRIS stocking, SCD knee FENGI: Heart healthy Dispo: Med/Surg Code: Full Code (2) BPH (benign prostatic hyperplasia): (3) Hyperlipidemia: (4) Paroxysmal atrial tachycardia: Admission and Anticipated Discharge Date Admission Date: April 23, 2020 Supervising Physician Co-Signing Physician Notes I personally examined the patient and verified all sexton points of history and exam, discussed case, and agree with decision making with Dr Brown. feeling much better. answered all questiosn to the best of our ability and to his satisfaction vitals noted nad heent nc at mmm breathing unlabored no accessory muscles good effort skin no rashes no pallor or icterus sepsis POA related to acute prostatitis / UTI - improving. continue zosyn. doing well, not severe sepsis or septic shock (initially concerning for this due to cr 1.27 on admission but improved easily) so no need for double coverage despite obvious risk for this being healthcare associated bacteria with the relationship to the prostate biopsy (stop gent). await further ID&S on cultures to be able to hopefully transition to PO abx (will need 6wks since prostatitis) otherwise as above Subjective I saw the patient this AM at bedside where he was laying comfortably. He reports feeling better and expresses full understanding over his current postoperative infection. He reports having some continued hematuria and feels it is getting better. Occasional chills but says this may be because his room is very cold. No new complaints. No fever, nausea, vomiting, CP, palpitations, SOB, cough, dysuria. Review of Systems Constitutional: + chills; no fever and no fatigue Respiratory: no cough, no dyspnea and no pain on inspiration Cardiovascular: no chest pain, no palpitations and no edema Gastrointestinal: no abdominal pain, no nausea, no vomiting, no constipation and no diarrhea/loose stools Genitourinary: + hematuria; no dysuria and no difficulty urinating Physical Exam Constitutional: WD/WN, vitals as above no acute distress and no altered mental status Respiratory: normal respiratory effort, lungs clear to auscultation Auscultation: no crackles, no rales, no rhonchi and no wheezes Cardiovascular: RRR, no murmur, no edema Heart Sounds: normal S1 and normal S2; no gallop, no murmur and no cardiac rub Gastrointestinal (Abdomen): normal bowel sounds, soft, nontender, no hepatosplenomegaly Skin: no rashes, warm and dry Psychiatric: A+Ox3, euthymic affect Insight: good insight Results & Data Results & Data ([facility]) Vital Signs (Past 12 Hours) Vital Signs Temp Pulse Resp BP Pulse Ox 04/24/20 07:51 37.2 C 84 18 110/65 94 04/23/20 23:23 37.5 C 90 18 108/67 96 Resident Activity Tracking Resident Involvement: Resident Care Provided Care Provided: Adult Hospital Medicine (1) Prostatitis Prostatitis type: unspecified Qualified Code(s): N41.9 - Inflammatory disease of prostate, unspecified
[2020-04-24] MEDS ORDERED: DEXTROSE 5% IV SCH (17:00)
[2020-04-24] MEDS ORDERED: GENTAMICIN SULFATE IV SCH (17:00)
--- NOTE | 2020-04-24 18:28 | Billing Data ---
Date of Service April 24, 2020 Coding Level of Care Code 43218 Subseq Hosp Care Lvl 3
[2020-04-25] MEDS: PIPERACILLIN/TAZOBACTAM 3.375 GM in DEXTROSE 5% 100 ML IV SCH ×2 (02:39→10:48)
--- NOTE | 2020-04-25 06:25 | Electrocardiogram Report ---
Test Reason : Blood Pressure : / mmHG Vent. Rate : 082 BPM Atrial Rate : 082 BPM P-R Int : 160 ms QRS Dur : 114 ms QT Int : 362 ms P-R-T Axes : -07 048 037 degrees QTc Int : 422 ms Normal sinus rhythm Normal ECG No previous ECGs available Confirmed by Dao Dunbar ([id number]) on 04/25/2020 6:25:24 AM Referred By: Pooja Mendez Confirmed By:Dao Dunbar
[2020-04-25 06:58] LABS: Basophils # (auto) 0.02 K/uL (0-0.2); Basophils % (auto) 0.2 %; Eosinophils # (auto) 0.06 K/uL (0-0.5); Eosinophils % (auto) 0.6 %; Hematocrit (blood only) 41.1 % (42-52); Hemoglobin 14.3 g/dL (14.0-18.0); Immature Granulocytes # (auto) 0.02 K/uL (0.00-0.02); Immature Granulocytes % (auto) 0.2 %; Lymphocytes # (auto) 1.38 K/uL (1.2-3.4); Lymphocytes % (auto) 14.1 %; Mean Corpuscular Hemoglobin 32.1 pg (25-34); Mean Corpuscular Hgb Conc 34.8 g/dL (32-36); Mean Corpuscular Volume 92.2 fL (80-100); Monocytes # (auto) 0.88 K/uL (0.11-0.59); Neutrophils # (auto) 7.41 K/uL (1.4-6.5); Neutrophils % (auto) 75.9 %; Platelet Count 160 K/uL (130-400); Red Blood Count 4.46 M/uL (4.7-6.1); White Blood Count 9.77 K/uL (4.8-10.8)
[2020-04-25 07:27] LABS: BUN Creatinine Ratio 12.5 (10-20); Calcium 8.9 mg/dl (8.5-10.1); Creatinine Clr Calc Pharmacy 88.4 ml/min; Est GFR (African American) 81.5; Est GFR (Non-African American) 70.4; Potassium 3.7 mmol/L (3.5-5.1)
[2020-04-25] MEDS: ATORVASTATIN 10 MG TAB PO SCH (08:36)
[2020-04-25] MEDS: CHOLECALCIFEROL 1,000 UNITS 25 MCG TAB PO SCH (08:36)
[2020-04-25] MEDS: ACETAMINOPHEN 325 MG TAB PO PRN ×2 (08:41→20:11)
--- NOTE | 2020-04-25 09:52 | Hospitalist Progress Note ---
Date of Service April 25, 2020 Assessment & Plan (1) Prostatitis: Mr. Daly is a 64-year-old male with a history of BPH with multiple negative biopsies of the prostate, hyperlipidemia, obesity. He had complaints of hematuria, fever, and rigors. He underwent a transrectal biopsy of the prostate on Tuesday (04/21/20) at [facility] in [place]. He had some minimal flank pain and low back pain. He was found to have an elevated white count of 14.87 in the ED. His urologic surgeon in [place] Dr. Hinkle was contacted and recommended inpatient IV therapy for postoperative infection. Sepsis secondary to prostatitis - Patient's fever and chills have resolved, feels much better - WBC has been downtrending from 12.67 to 9.77 today - Blood culture preliminary: gram negative bacilli - Discontinued Zosyn 3.375g IV q8h - Discontinued gentamicin 660mg IV q24h - Started ceftriaxone 2g IV daily by sensitivities--sensitive to all cephalosporins - Will switch to cefdinir PO on discharge for 6 weeks to treat prostatitis - Follow up AM CBC STEPHANIE - Patient's creatinine was slightly elevated on admission at 1.27--down to 1.00 this AM - Follow I's and O's - Follow AM BMPs Hyperlipidemia - Continue with home atorvastatin 10mg PO daily Paroxysmal atrial tachycardia - Not receiving treatment currently - Follows with [facility] cardiology - Normal sinus rhythm on EKG DVT prophylaxis: CHRIS stocking, SCD knee FENGI: Heart healthy Dispo: Med/Surg Code: Full Code (2) BPH (benign prostatic hyperplasia): (3) Hyperlipidemia: (4) Paroxysmal atrial tachycardia: Admission and Anticipated Discharge Date Admission Date: April 23, 2020 Supervising Physician Co-Signing Physician Notes I personally examined the patient and verified all sexton points of history and exam, discussed case, and agree with decision making with Dr Brown. feeling good overall. present. updated. pt/ comfortable with plan vitals noted nad heent nc at mmm breathing unlabored no accessory muscles good effort skin no rashes no pallor or icterus sepsis POA related to acute prostatitis / UTI - improving. E Coli was sensitive to zosyn, but also to all cephalosporins. will give ceftriaxone - continue IV for another 24-48hrs of therapy (he looks great now, but was fairly ill on arrival) and then will transition to PO to complete 6wks Rx, outpt f/u otherwise as above Subjective I saw the patient this AM at bedside where he was laying comfortably. He reports continued improvement on IV antibiotics Patient asked today about whether he'd be sent back home on IV antibiotics. I informed him of his culture sensitivities and our plan to switch to oral treatment on discharge--he's on board with this plan. No new complaints. No fever, nausea, vomiting, CP, palpitations, SOB, cough, dysuria. Review of Systems Constitutional: no fever, no chills, no sweats, no fatigue and no weakness Respiratory: no cough, no chest congestion and no dyspnea Cardiovascular: no chest pain, no palpitations and no edema Gastrointestinal: no abdominal pain, no nausea, no vomiting, no constipation and no diarrhea/loose stools Genitourinary: no dysuria, no difficulty urinating and no urinary frequency Physical Exam Constitutional: WD/WN, vitals as above no acute distress and no altered mental status Respiratory: normal respiratory effort, lungs clear to auscultation Aus cultation: no crackles, no rales, no rhonchi and no wheezes Cardiovascular: RRR, no murmur, no edema Heart Sounds: normal S1 and normal S2; no gallop, no murmur and no cardiac rub Psychiatric: A+Ox3, euthymic affect Insight: good insight Results & Data Results & Data ([facility]) Vital Signs (Past 12 Hours) Vital Signs Temp Pulse Resp BP Pulse Ox 04/25/20 07:16 37.0 C 65 18 106/69 95 04/24/20 23:29 37.1 C 70 18 102/62 94 Resident Activity Tracking Resident Involvement: Resident Care Provided Care Provided: Adult Hospital Medicine (1) Prostatitis Prostatitis type: unspecified Qualified Code(s): N41.9 - Inflammatory disease of prostate, unspecified
[2020-04-25] MEDS ORDERED: cefTRIAXone SODIUM 2,000 MG in DEXTROSE 5% 50 ML IV ONE (11:00)
--- NOTE | 2020-04-25 18:47 | Billing Data ---
Date of Service April 25, 2020 Coding Level of Care Code 54306 Subseq Hosp Care Lvl 3
--- NOTE | 2020-04-25 18:47 | Billing Data ---
Date of Service April 25, 2020 Coding Level of Care Code 54657 Subseq Hosp Care Lvl 3
[2020-04-26 05:45] LABS: Basophils # (auto) 0.01 K/uL (0-0.2); Basophils % (auto) 0.1 %; Eosinophils # (auto) 0.11 K/uL (0-0.5); Eosinophils % (auto) 1.1 %; Hematocrit (blood only) 40.3 % (42-52); Hemoglobin 14.3 g/dL (14.0-18.0); Immature Granulocytes # (auto) 0.02 K/uL (0.00-0.02); Immature Granulocytes % (auto) 0.2 %; Lymphocytes # (auto) 1.98 K/uL (1.2-3.4); Lymphocytes % (auto) 19.2 %; Mean Corpuscular Hemoglobin 32.5 pg (25-34); Mean Corpuscular Hgb Conc 35.5 g/dL (32-36); Mean Corpuscular Volume 91.6 fL (80-100); Monocytes % (auto) 9.7 %; Neutrophils # (auto) 7.18 K/uL (1.4-6.5); Neutrophils % (auto) 69.7 %; Platelet Count 169 K/uL (130-400); RDW Coefficient of Variation 12.6 % (11.5-14.5); RDW Standard Deviation 42.6 fL (36.4-46.3)
[2020-04-26 06:18] LABS: BUN Creatinine Ratio 11.1 (10-20); Calcium 8.9 mg/dl (8.5-10.1); Creatinine Clr Calc Pharmacy 92.7 ml/min; Est GFR (African American) 86.3; Est GFR (Non-African American) 74.5; Potassium 4.7 mmol/L (3.5-5.1)
--- NOTE | 2020-04-26 07:10 | Discharge Summary ---
Date of Service April 26, 2020 Admission HPI Per Admitting Provider Attending: Dr. Mar This is a 64-year-old male with a history of BPH with multiple negative biopsies of the prostate, hyperlipidemia, obesity. The patient presents for evaluation treatment secondary to hematuria, fever, and Rigors. He underwent a transrectal biopsy of the prostate on Tuesday at [facility] in [place] and then stayed with his family the next day. He then returned home and did well until last night at approximate midnight when he began to have rigors and felt febrile. He had a very small amount of blood rectally on Tuesday and that has since resolved completely. He also had a resolution of hematuria until last night when he began having gross hematuria again. He has some minimal flank pain and low back pain and presented to the emergency room this morning for further evaluation and treatment. The patient was found to have an elevated white count of 14.87. T-max was 37.7. His urologic surgeon in [place] Dr. Hinkle was contacted and recommended inpatient IV therapy for postoperative infection. The patient is seen in his bed in room C3 with his Kimmie present. He continues to have chills and rigors. Has no nausea or vomiting. He does feel febrile. A CT scan of the abdomen pelvis was completed and shows enlarged prostate which is heterogeneous. There is also evidence for prostatitis. Treatment options were discussed with the patient and he will be admitted for inpatient therapy with IV Zosyn. I did discuss CODE STATUS with the patient and he desires to be a level 1 for resuscitation. His is present and agrees. Admission Exam Per Admitting Provider GENERAL : No acute distress. Pleasant. No conversational dyspnea EYES: No icterus, gaze conjugate. Pupils equal round and reactive to light NOSE: No evidence of epistaxis. MOUTH: No lesions or candidiasis. Mucosa is moist NECK: Supple. No stridor or appreciation of carotid bruits LUNGS: CTA B/L, no wheezes, rales or rhonchi. Good inspirational effort HEART: Regular, rate controlled. No appreciation of ectopy ABDOMEN: Soft, NT, ND, BS Present EXTREMITIES: No LE edema, pedal pulses intact and equal bilaterally NEURO: A&OX3 Principal Diagnosis Sepsis secondary to prostatitis Discharge Exam Constitutional WD/WN, vitals as above no acute distress and no altered mental status Respiratory normal respiratory effort, lungs clear to auscultation Auscultation: no crackles, no rales, no rhonchi and no wheezes Cardiovascular RRR, no murmur, no edema Heart Sounds: normal S1 and normal S2; no gallop, no murmur and no cardiac rub Gastrointestinal (Abdomen) normal bowel sounds, soft, nontender, no hepatosplenomegaly Skin no rashes, warm and dry Psychiatric A+Ox3, euthymic affect Insight: good insight Discharge Data Allergies Allergy/AdvReac Type Severity Reaction Status Date / Time No Known Allergies Allergy Verified 04/23/20 12:06 Consultations 04/23/20 15:03 ED Decision to Admit Stat Ordered Studies 04/23/20 11:27 CT abd pelvis IV con only Stat Hospital Course (1) Prostatitis: Mr. Daly is a 64-year-old male with a history of BPH with m ultiple negative biopsies of the prostate, hyperlipidemia, obesity. He had complaints of hematuria, fever, and rigors. He underwent a transrectal biopsy of the prostate on Tuesday (04/21/20) at [facility] in [place]. He had some minimal flank pain and low back pain. He was found to have an elevated white count of 14.87 in the ED. His urologic surgeon in [place] Dr. Hinkle was contacted and recommended inpatient IV therapy for postoperative infection. Sepsis secondary to prostatitis - Patient's fever and chills have resolved, feels much better - WBC at 10.30 today - Blood culture: E. coli - Discontinued Zosyn 3.375g IV q8h - Discontinued gentamicin 660mg IV q24h - Started ceftriaxone 2g IV daily by sensitivities--sensitive to all cephalosporins - Switched to cefdinir PO on discharge for 6 weeks to treat prostatitis STEPHANIE - Patient's creatinine was slightly elevated on admission at 1.27 - Resolved--currently at 1.04 Hyperlipidemia - Continue with home atorvastatin 10mg PO daily Paroxysmal atrial tachycardia - Not receiving treatment currently - Follows with [facility] [place] [place] cardiology - Normal sinus rhythm on EKG FENGI: Heart healthy Dispo: Home Code: Full Code (2) BPH (benign prostatic hyperplasia): (3) Hyperlipidemia: (4) Paroxysmal atrial tachycardia: Total Time Total Time Spent Total Time Spent (In Minutes): <30 Discharge Plan Discharge Items Patient Disposition: Home - Self-Care Reason For Visit: POSTOPERATIVE PROSTATITIS Discharge Diagnosis: Sepsis secondary to prostatitis Activity: Resume your previous activity Non-emergency contact: Primary Care Provider Call non-emergency contact if: your symptoms worsen and your temperature is above 101 Follow-up/Referrals: Brendon Carrasco MD [Primary Care Provider] - Diet: Heart Healthy Addtl Attending Provider Instructions: You came to [facility] with complaints of urinating blood, fever, chills, and rigors. Due to your recent prostate biopsy you were admitted with a diagnosis of postoperative infection of your prostate. You were subsequently found to have bacteria in your blood stream and a diagnosis of sepsis secondary to your prostate infection. You received treatment with IV antibiotics and progressed well. Due to the way blood flows into your prostate, it is more difficult for antibiotics to penetrate the area. As such, a longer course of antibiotics is necessary to make sure your infection is well covered. You will receive 6 weeks of oral antibiotics upon discharge. Please follow up with your primary care provider at your earliest convenience. Pending Studies at Discharge: No Stand-Alone Forms: My [facility], Smoking Cessation Medications and DC Order Prescriptions: New cefdinir 300 mg capsule 300 mg PO BID 42 Days Qty: 84 RF: 0 Continued acetaminophen [Tylenol Extra Strength] 500 mg Tablet 1,000 mg PO Q6H PRN (Reason: Pain) RF: 0 atorvastatin 10 mg tablet 10 mg PO QAM RF: 0 cholecalciferol (vitamin D3) 50 mcg (2,000 unit) capsule 50 mcg PO QAM RF: 0 Discharge Orders: Discharge Order (Routine); Ordered 04/26/20 Ordered By: Tom BrownAbdirahman Pruitt/Other Patient Handouts: Preventing Surgical Site Infections, Benign Prostatic Hyperplasia Admission Data Admit Date/Time: 04/23/20 15:27 Attending Provider: Kingston Duff Admit Provider: Kevin Mar Primary Care Provider: Brendon Carrasco Other Providers: Kevin Mar Other Interventions: Discharge Summary Assessment (RN) Last Done: 04/26/20 12:55 Supervising Physician Co-Signing Physician Notes I personally examined the patient and verified all sexton points of history and exam, discussed case, and agree with decision making with Dr Brown. feeling good overall. feels up to going home. present. updated. pt/ comfortable with plan vitals noted nad heent nc at mmm breathing unlabored no accessory muscles good effort skin no rashes no pallor or icterus sepsis POA related to acute prostatitis / UTI - improving. E Coli was sensitive to zosyn, but also to all cephalosporins. had 4 days IV abx, doing extremely well even after first day. feels up to going home, no fever, white count improved. transition to PO cefdinir x6wks since prostatitis. outlined red flags for seeking repeat care. outlined expected course of recovery. otherwise as above Resident Activity Tracking Resident Involvement: Resident Care Provided Care Provided: Adult Hospital Medicine
[2020-04-26] MEDS: CHOLECALCIFEROL 1,000 UNITS 25 MCG TAB PO SCH (08:25)
[2020-04-26] MEDS: ATORVASTATIN 10 MG TAB PO SCH (08:25)
[2020-04-26] MEDS ORDERED: cefTRIAXone SODIUM 2,000 MG in DEXTROSE 5% 50 ML IV ONE (09:00)
--- NOTE | 2020-04-26 16:03 | Billing Data ---
Date of Service April 26, 2020 Coding Level of Care Code D/C Day Management <30 mins
== END 2020-04-26 14:35 | disposition home or self-care (01) | DRG 862 ==
LOC: ED 11:06 → SUATTDRO 15:27 → 2N 15:27